=== PATIENT | male | born 1940 | race Caucasian/White ===

== ENCOUNTER 2016-05-07 23:57 | Emergency (ER) | payer MEDICARE, OTHER ==
[~2016-05-07] VITALS: Ht 170.2 cm; Wt 73.6 kg
[~2016-05-07 23:57] MED LIST: ACET325T33 PO; Accucheck XX; Amiodarone Hcl PO; ESCI10TA48 PO; LANT3I SC; LEVO500T10 PO; LISI-313 PO; METO25TA4 PO; MTF1000T PO; SENN-8 PO; SIMV20TA PO; TAMS0.4C2 PO
[2016-05-08 00:05] VITALS: Ht 170.2 cm; Wt 73.6 kg
--- NOTE | 2016-05-08 00:17 | ERD ---
ER Documentation Chief Complaint Date/Time DATE: 05/08/16 TIME: 00:13 Chief Complaint blood in Szymanski bag, vomiting X1 HPI Patient is a 75-year-old gentleman from the [place] whose caregiver reports that he had gross blood in his Szymanski bag today. There is no known history of this that is reported. We do not know if he pulled on his Szymanski catheter. There is very limited history that was sent with the patient and unfortunately has dementia. He does not have a fever. The patient himself denies any symptoms. Specifically he denies any abdominal pain or dysuria. Reportedly from EMS he had an episode of nausea and vomiting when they picked him up. The remainder of the systems are limited secondary to the patient's dementia. ROS All systems reviewed and are negative except as per history of present illness. Medications Home Meds Active Scripts Levofloxacin* (Levofloxacin*) 500 Mg Tablet, 500 MG PO DAILY for 10 Days, TAB Prov:OCONNOR,HIRAL V. PROJECT SAFETY MANAGER 02/18/16 Insulin Glargine* (Lantus*) 100 Unit/Ml Soln, 20 UNIT SC DAILY for 30 Days Prov:OCONNORCATHYA V. PROJECT SAFETY MANAGER 02/18/16 [Accucheck] 1 EA EA No Conflict Check, 1 EA XX AC MEALS Prov:OCONNOR,HIRAL V. PROJECT SAFETY MANAGER 02/18/16 Acetaminophen* (Tylenol*) 325 Mg Tablet, 650 MG PO Q6H Y for PAIN AND OR ELEVATED TEMP for 30 Days, TAB Prov:OCONNORHIRAL V. PROJECT SAFETY MANAGER 02/18/16 Lisinopril* (Lisinopril*) 5 Mg Tablet, 5 MG PO DAILY, #30 TAB Prov:MARIUM ANGEL MD 07/18/15 Insulin Glargine* (Lantus*) 100 Unit/Ml Soln, 1 UNIT SC QHS, #1 VIAL Prov:MARIUM ANGEL MD 07/18/15 [Amiodarone Hcl] 200 MG TAB No Conflict Check, 200 MG PO BID, TAB Prov:MARIUM ANGEL MD 07/17/15 Reported Medications Tamsulosin Hcl* (Tamsulosin Hcl*) 0.4 Mg Cap.er.24h, 0.4 MG PO HS, CAP 07/16/15 Simvastatin* (Zocor*) 20 Mg Tablet, 20 MG PO QHS, #30 TAB 07/16/15 Sennosides/Docusate Sodium* (Senna-S*) 1 Tab Tablet, 1 TAB PO QHS Y for CONSTIPATION, TAB 07/16/15 Metoprolol Tartrate* (Lopressor*) 25 Mg Tablet, 12.5 MG PO BID, #60 TAB 07/16/15 Metformin* (Glucophage*) 1,000 Mg Tablet, 1000 MG PO BID, #60 TAB 07/16/15 Escitalopram Oxalate* (Escitalopram Oxalate*) 10 Mg Tablet, 10 MG PO DAILY, #30 TAB 07/16/15 Allergies Allergies: Coded Allergies: penicillin (Verified Allergy, Unknown, 07/16/15) PMhx/Soc History of Surgery: No Anesthesia Reaction: No Hx Neurological Disorder: Yes (Dementia) Hx Respiratory Disorders: No Hx Cardiac Disorders: Yes (HTN, AFIB) Hx Psychiatric Problems: Yes (Dementia) Hx Miscellaneous Medical Probl: Yes (a-fib, depression, HTN, DM, HLD, BPH) Hx Alcohol Use: Yes Hx Substance Use: No Hx Tobacco Use: Yes (long time ago) FmHx Unknown Physical Exam Vitals Vital Signs Date Time Temp Pulse Resp B/P Pulse Ox O2 Delivery O2 Flow Rate FiO2 05/08/16 00:05 98.3 67 18 143/69 96 Physical Exam Const: [] Well-developed disheveled male lying on the bed no acute distress with obvious hematuria in his Szymanski Head: Atraumatic normocephalic Eyes: Normal Conjunctiva ENT: Normal External Ears, Nose and Mouth. Resp: Poor inspiratory effort, decreased in the bases Cardio: Regular rate and rhythm, no murmurs Abd: Soft, non tender, non distended. Normal bowel sounds Skin: No petechiae or rashes Ext: No cyanosis, or edema Neur: Awake and alert, GCS equals E4M6,V4 Psych: Normal Mood and flat affect Result Diagram: 05/08/163405/08/1634 Results 24 hrs Laboratory Tests Test 05/08/16 00:35 Activated Partial Thromboplast Time 30.1Sec Alanine Aminotransferase (ALT/SGPT) 20IU/L Albumin 4.2g/dl Albumin/Globulin Ratio 1.16 Alkaline Phosphatase 88IU/L Anion Gap 20 Aspartate Amino Transf (AST/SGOT) 21IU/L Basophils # 0.010^3/ul Basophils % 0.4% Blood Urea Nitrogen 32mg/dl Calcium Level 9.6mg/dl Carbon Dioxide Level 26mmol/L Chloride Level 101mmol/L Creatinine 1.18mg/dl Direct Bilirubin 0.00mg/dl Eosinophils # 0.210^3/ul Eosinophils % 2.9% Globulin 3.60g/dl Glucose Level 87mg/dl Hematocrit 37.2% Hemoglobin 12.3g/dl INR International Normalized Ratio 0.95 Indirect Bilirubin 0.3mg/dl Lymphocytes # 1.010^3/ul Lymphocytes % 12.0% Mean Corpuscular Hemoglobin 29.9pg Mean Corpuscular Hemoglobin Concent 33.1g/dl Mean Corpuscular Volume 90.5fl Mean Platelet Volume 10.2fl Monocytes # 0.110^3/ul Monocytes % 0.6% Neutrophils # 7.010^3/ul Neutrophils % 83.9% Nucleated Red Blood Cells # 0.010^3/ul Nucleated Red Blood Cells % 0.0/100WBC Platelet Count 13767^3/UL Potassium Level 4.3mmol/L Prothrombin Time 12.7Sec Prothrombin Time Ratio 1.0 Red Blood Count 4.1110^6/ul Red Cell Distribution Width 14.6% Sodium Level 143mmol/L Total Bilirubin 0.3mg/dl Total Protein 7.8g/dl White Blood Count 8.310^3/ul Procedures/MDM Differential includes but is not limited to urinary tract infection, hematuria, renal cell carcinoma, bladder cell tumor, hemorrhagic cystitis, bladder ulcer, trauma from his Szymanski Patient continues to have gross hematuria from his Szymanski despite the copious irrigation. His blood work looks okay. He should be okay to go back to the alf with outpatient evaluation for his hematuria. Departure Diagnosis: Primary Impression: Hematuria Condition: Good Patient Instructions: Szymanski Catheter, Care, Hematuria Referrals: BARRETT GARCIA MD Additional Instructions: The patient is going to continue to have hematuria. His hemoglobin, hematocrit , and clotting factors were normal in the emergency department today. Please call Dr. Garcia and schedule a follow-up appointment for further evaluation of his hematuria. We were unable to discover a cause for his hematuria in the emergency department however he appears stable enough for discharge and evaluation as an outpatient. If at any time he develops low blood pressure, fever, abdominal pain, or any new or worsening symptoms please send him immediately to the emergency department for repeat evaluation. TARUN LANTIGUA May 08, 2016 00:17
[2016-05-08 01:05] LABS: ADD SCAN DIFF NO
[2016-05-08 01:22] LABS: ALBUMIN 4.2 g/dl (3.3-4.9)
[2016-05-08 01:23] LABS: POTASSIUM 4.3 mmol/L (3.5-5.1)
[2016-05-08 01:25] LABS: ALBUMIN/GLOBULIN RATIO 1.16; BILIRUBIN,INDIRECT 0.3 mg/dl (0-1.1); BILIRUBIN,TOTAL 0.3 mg/dl (0.2-1.3); CREATININE 1.18 mg/dl (0.61-1.24); TOTAL PROTEIN 7.8 g/dl (6.1-8.1)
[2016-05-08 01:26] LABS: BASOPHILS % 0.4 % (0.0-2.0); CALCIUM 9.6 mg/dl (8.4-10.2); EOSINOPHILS # 0.2 10^3/ul (0.0-0.5); EOSINOPHILS % 2.9 % (0.0-7.0); HEMATOCRIT 37.2 % (42.0-52.0); HEMOGLOBIN 12.3 g/dl (14.0-18.0); MEAN CORPUSCULAR HEMOGLOBIN 29.9 pg (29.0-33.0); MEAN CORPUSCULAR HGB CONC 33.1 g/dl (32.0-37.0); MEAN CORPUSCULAR VOLUME 90.5 fl (82.0-101.0); MEAN PLATELET VOLUME 10.2 fl (7.4-10.4); MONOCYTE # 0.1 10^3/ul (0.3-0.9); MONOCYTES % 0.6 % (0.0-11.0); NEUTROPHILS % 83.9 % (39.0-77.0); PLATELET COUNT 211 10^3/UL (140-415); RED BLOOD COUNT 4.11 10^6/ul (4.70-6.10); RED CELL DISTRIBUTION WIDTH 14.6 % (11.5-14.5); WHITE BLOOD COUNT 8.3 10^3/ul (4.8-10.8)
[2016-05-08 01:34] LABS: INR 0.95; PROTIME 12.7 Sec (12.2-14.2)
[2016-05-08 01:35] LABS: PARTIAL THROMBOPLASTIN TIME 30.1 Sec (25.0-35.0)
[2016-05-08 03:00] VITALS: TEMP 98.1
[2016-05-08 04:34] VITALS: BP 117/60; PULSE 66; RESP 17
== END 2016-05-08 04:35 | disposition home or self-care (01) ==
LOC: E/R 23:57
DX: R31.9 Hematuria, unspecified (principal); E11.9 Type 2 diabetes mellitus without complications; I12.9 Hypertensive chronic kidney disease with stage 1 through stage 4 chronic kidney disease, or unspecified chronic kidney disease; N18.9 Chronic kidney disease, unspecified; Z79.4 Long term (current) use of insulin; Z79.84 Long term (current) use of oral hypoglycemic drugs; Z87.891 Personal history of nicotine dependence
CPT/HCPCS: 36415; 80053; 85025; 85610; 85730; 87086